=== PATIENT | male | born 1970 | race Caucasian/White ===

== ENCOUNTER 2020-04-02 13:50 | Emergency (ER) | payer MEDICARE, OTHER ==
[~2020-04-02 13:50] MED LIST: BACTRIM DS TAB1 EACH PO; BACTROBAN OINT22 GM TOP; CLARITIN-D 241 EACH PO; CYCLOBENZAPRINE10 MG PO; IBUPROFEN800 MG PO; KEFLEX500 MG PO
[2020-04-02 15:30] LABS: HEMOGLOBIN 15.8 gm/dl (14.0-17.5); RED BLOOD COUNT 4.87 M/UL (4.20-5.50); WHITE BLOOD COUNT 10.9 K/UL (4.5-11.0)
[2020-04-02 15:52] LABS: BUN/CREATININE RATIO 22 (0-10)
[2020-04-02] MEDS ORDERED: ENDOCET 5-3251 EACH PO (17:13)
[2020-04-02] MEDS ORDERED: ZOFRAN ODT 4 MG4 MG SL (17:14)
== END 2020-04-02 17:27 | disposition home or self-care (01) ==
LOC: ER1 13:50
PROVIDERS: Emergency Medicine
DX: N13.2 Hydronephrosis with renal and ureteral calculous obstruction (principal)
CPT/HCPCS: 80053; 81001; 83690; 85025; 96374; 96375; 99284; J1885; J2270; J2405

== ENCOUNTER 2020-04-05 14:17 | Emergency (ER) | payer MEDICARE, OTHER ==
[~2020-04-05 14:17] MED LIST changes: +ENDOCET 5-3251 EACH PO; +ZOFRAN ODT 4 MG4 MG SL
[2020-04-05 15:49] LABS: HEMOGLOBIN 15.7 gm/dl (14.0-17.5); RED BLOOD COUNT 4.89 M/UL (4.20-5.50); WHITE BLOOD COUNT 8.9 K/UL (4.5-11.0)
[2020-04-05 16:21] LABS: BUN/CREATININE RATIO 8 (0-10)
[2020-04-05] MEDS ORDERED: TORADOL 10 MG T10 MG PO (17:15)
== END 2020-04-05 17:28 | disposition home or self-care (01) ==
LOC: ER1 14:17
PROVIDERS: Physician Assistant Medical
DX: N20.0 Calculus of kidney (principal); F17.210 Nicotine dependence, cigarettes, uncomplicated; Z90.49 Acquired absence of other specified parts of digestive tract
CPT/HCPCS: 76775; 80053; 81001; 85025; 96374; 96375; 99284; J1885; J2270; J2405

== ENCOUNTER 2021-03-13 21:21 | Emergency (ER) | payer BC, OTHER ==
[~2021-03-13 21:21] MED LIST changes: +TORADOL 10 MG T10 MG PO
[2021-03-13] MEDS ORDERED: BENADRYL 25MG C25 MG PO (22:53)
[2021-03-13] MEDS ORDERED: LOTRIMIN CREAM15 GM TP (22:53)
== END 2021-03-13 23:12 | disposition home or self-care (01) ==
LOC: ER1 21:21
DX: R21 Rash and other nonspecific skin eruption (principal); K21.9 Gastro-esophageal reflux disease without esophagitis
CPT/HCPCS: 96372; 99282; J1100

== ENCOUNTER 2021-06-27 10:50 | Emergency (ER) | payer BC, OTHER ==
[~2021-06-27 10:50] MED LIST changes: +BENADRYL 25MG C25 MG PO; +LOTRIMIN CREAM15 GM TP
[2021-06-27 11:17] LABS: HEMOGLOBIN 15.8 gm/dl (14.0-17.5); RED BLOOD COUNT 4.87 M/UL (4.20-5.50); WHITE BLOOD COUNT 7.6 K/UL (4.5-11.0)
[2021-06-27 11:48] LABS: BUN/CREATININE RATIO 16 (0-10)
[2021-06-27] MEDS ORDERED: ZOFRAN 4 MG TAB4 MG PO (14:46)
== END 2021-06-27 15:27 | disposition home or self-care (01) ==
LOC: ER1 10:50
DX: R07.9 Chest pain, unspecified (principal); R06.02 Shortness of breath; I10 Essential (primary) hypertension; F17.210 Nicotine dependence, cigarettes, uncomplicated; R94.5 Abnormal results of liver function studies
CPT/HCPCS: 71045; 80053; 82550; 82553; 83880; 84484; 85025; 99285

== ENCOUNTER 2021-08-28 00:08 | Emergency (ER) | payer BC, OTHER ==
[~2021-08-28 00:08] MED LIST changes: +ZOFRAN 4 MG TAB4 MG PO
[2021-08-28 00:57] LABS: HEMOGLOBIN 16.5 gm/dl (14.0-17.5); RED BLOOD COUNT 5.06 M/UL (4.20-5.50); WHITE BLOOD COUNT 11.2 K/UL (4.5-11.0)
[2021-08-28 01:23] LABS: BUN/CREATININE RATIO 11 (0-10)
[2021-08-28] MEDS ORDERED: IBUPROFEN600 MG PO (03:09)
[2021-08-28] MEDS ORDERED: FLOMAX0.4 MG PO (03:09)
[2021-08-28] MEDS ORDERED: ZOFRAN ODT 4 MG4 MG PO (03:09)
== END 2021-08-28 03:18 | disposition home or self-care (01) ==
LOC: ER1 00:08
PROVIDERS: Physician Assistant
DX: R10.813 Right lower quadrant abdominal tenderness (principal); R11.2 Nausea with vomiting, unspecified; N20.1 Calculus of ureter; F17.210 Nicotine dependence, cigarettes, uncomplicated; K21.9 Gastro-esophageal reflux disease without esophagitis; I10 Essential (primary) hypertension; Z87.442 Personal history of urinary calculi
CPT/HCPCS: 80053; 81001; 82150; 83690; 85025; 87086; 96361; 96374; 96375; 99284; J1885; J2405; Q9967

== ENCOUNTER 2021-11-04 10:10 | Emergency (ER) | payer BC, OTHER ==
[~2021-11-04 10:10] MED LIST changes: +FLOMAX0.4 MG PO; +IBUPROFEN600 MG PO; +ZOFRAN ODT 4 MG4 MG PO
[2021-11-04] MEDS ORDERED: NORFLEX 100 MG100 MG PO (13:09)
[2021-11-04] MEDS ORDERED: IBUPROFEN600 MG PO (13:09)
== END 2021-11-04 12:35 | disposition left against medical advice (07) ==
LOC: ER1 10:10
DX: S13.150A Subluxation of C4/C5 cervical vertebrae, initial encounter (principal); S46.912A Strain of unspecified muscle, fascia and tendon at shoulder and upper arm level, left arm, initial encounter; F17.210 Nicotine dependence, cigarettes, uncomplicated; W11.XXXA Fall on and from ladder, initial encounter; Y92.89 Other specified places as the place of occurrence of the external cause; Y99.0 Civilian activity done for income or pay
CPT/HCPCS: 71045; 72125; 73030; 99283

== ENCOUNTER 2021-11-13 17:31 | Emergency (ER) | payer BC, OTHER ==
[~2021-11-13 17:31] MED LIST changes: +NORFLEX 100 MG100 MG PO
== END 2021-11-13 19:26 | disposition left against medical advice (07) ==
LOC: ER1 17:31
DX: Z53.21 Procedure and treatment not carried out due to patient leaving prior to being seen by health care provider (principal)

== ENCOUNTER → 2021-12-24 | Outpatient (CLI) | payer MEDICARE, OTHER | LOC: US 13:22 | DX: I73.9 Peripheral vascular disease, unspecified (principal) | CPT/HCPCS: 93922; 93925 ==